=== PATIENT | male | born 1945 | race Caucasian/White ===

== ENCOUNTER 2018-11-06 13:15 | Inpatient (IN) | payer MEDICARE, OTHER ==
[2018-11-06] MEDS ORDERED: DILTIAZEM 25 MG INJ (14:34)
[2018-11-06 14:45] LABS: ADD MAN DIFF? NO
[2018-11-06] MEDS: ENOXAPARIN 80 MG/0.8 ML SYG SC (14:47)
[2018-11-06] MEDS: SOD CHLORIDE 0.9% 500 ML IV (14:48)
[2018-11-06] MEDS: DILTIAZEM 25 MG INJ IV (14:48)
[2018-11-06 14:51] LABS: WHITE BLOOD COUNT 10.6 10^3/ul (4.8-10.8)
[2018-11-06 14:51] LABS: BASOPHILS % 0.4 % (0.0-2.0); EOSINOPHILS % 0.3 % (0.0-7.0); HEMATOCRIT 42.9 % (42.0-52.0); HEMOGLOBIN 13.9 g/dl (14.0-18.0); LYMPHOCYTES # 0.7 10^3/ul (0.8-2.9); LYMPHOCYTES % 6.5 % (15.0-51.0); MEAN CORPUSCULAR HEMOGLOBIN 30.3 pg (29.0-33.0); MEAN CORPUSCULAR HGB CONC 32.4 g/dl (32.0-37.0); MEAN CORPUSCULAR VOLUME 93.7 fl (82.0-101.0); MEAN PLATELET VOLUME 11.7 fl (7.4-10.4); MONOCYTE # 1.1 10^3/ul (0.3-0.9); MONOCYTES % 10.1 % (0.0-11.0); NEUTROPHIL # 8.8 10^3/ul (1.6-7.5); NEUTROPHILS % 82.2 % (39.0-77.0); PLATELET COUNT 158 10^3/UL (140-415); RED BLOOD COUNT 4.58 10^6/ul (4.70-6.10); RED CELL DISTRIBUTION WIDTH 14.8 % (11.5-14.5)
[2018-11-06 15:09] LABS: ANION GAP 8 (5-13); BLOOD UREA NITROGEN 49 mg/dl (7-20); CARBON DIOXIDE 25 mmol/L (21-31); CHLORIDE 109 mmol/L (97-110); CREATININE 1.68 mg/dl (0.61-1.24); GLUCOSE 112 mg/dl (70-220); POTASSIUM 4.8 mmol/L (3.5-5.1); SODIUM 142 mmol/L (135-144)
[2018-11-06 15:10] LABS: ALANINE AMINOTRANSFERASE 37 IU/L (13-69); ALBUMIN 3.9 g/dl (3.3-4.9); ALKALINE PHOSPHATASE 69 IU/L (42-121); ASPARTATE AMINO TRANSFERASE 23 IU/L (15-46); BILIRUBIN,INDIRECT 1.2 mg/dl (0-1.1); BILIRUBIN,TOTAL 1.2 mg/dl (0.2-1.3); CALCIUM 9.8 mg/dl (8.4-10.2); TOTAL PROTEIN 6.5 g/dl (6.1-8.1)
[2018-11-06 15:20] LABS: B-TYPE NATRIURETIC PEPTIDE 13100 PG/ML (0-125); TROPONIN-I 0.026 ng/ml (0.000-0.120)
[2018-11-06 15:38] LABS: INR 1.27; PT RATIO 1.3
[2018-11-06 15:39] LABS: PARTIAL THROMBOPLASTIN TIME 31.9 Sec (23.0-35.0)
[2018-11-06] MEDS: DILTIAZEM-D5W 125MG/125ML DRIP 125 ML IV (15:40)
[2018-11-06] MEDS ORDERED: NACL 0.9% 3 ML SYG IV (17:30)
[2018-11-06] MEDS ORDERED: ONDANSETRON 4 MG INJ IV (17:30)
[2018-11-06] MEDS ORDERED: ONDANSETRON 4 MG TAB PO (17:30)
[2018-11-06] MEDS ORDERED: HYDROCODONE/APAP (5/325) TAB PO (17:30)
[2018-11-06] MEDS ORDERED: ACETAMINOPHEN 325 MG TAB PO ×2 (17:30)
[2018-11-06] MEDS ORDERED: DILTIAZEM-D5W 125MG/125ML DRIP 125 ML IV (18:00)
[2018-11-06 18:01] LABS: ADD UMIC YES; UR ASCORBIC ACID 20 mg/dL (NEGATIVE); UR BILIRUBIN (Dip) NEGATIVE (NEGATIVE); UR BLOOD (Dip) NEGATIVE (NEGATIVE); UR CLARITY CLEAR (CLEAR); UR COLOR AMBER (YELLOW); UR GLUCOSE (Dip) NEGATIVE (NEGATIVE); UR KETONES (Dip) TRACE mg/dL (NEGATIVE); UR LEUKOCYTE ESTERASE (Dip) NEGATIVE Leu/ul (NEGATIVE); UR MUCUS FEW /HPF (NONE SEEN); UR NITRITE (Dip) NEGATIVE (NEGATIVE); UR RBC 1 /HPF (0-5); UR SPECIFIC GRAVITY (Dip) 1.029 (1.003-1.030); UR TOTAL PROTEIN (Dip) 2+ mg/dl (NEGATIVE); UR UROBILINOGEN (Dip) 1+ mg/dL (NEGATIVE); UR WBC 1 /HPF (0-5)
[2018-11-06] MEDS: METHYLPREDNISOLONE 125 MG INJ IV (18:14)
[2018-11-06 18:17] LABS: CREATINE KINASE 78 IU/L (23-200)
[2018-11-06 18:30] LABS: CK INDEX 2.2; CK-MB 1.68 ng/ml (0.0-2.4); TROPONIN-I 0.027 ng/ml (0.000-0.120)
[2018-11-06] MEDS: METOPROLOL 25 MG TAB PO (18:41)
[2018-11-06] MEDS: NICARDipine HCL 30 MG CAPSULE PO (18:45)
[2018-11-06] MEDS ORDERED: METOPROLOL 25 MG TAB PO ×2 (21:00)
[2018-11-06] MEDS: FAMOTIDINE 20 MG TAB PO (21:51)
[2018-11-06] MEDS: MONTELUKAST 10 MG TAB PO (21:51)
[2018-11-06] MEDS: ATORVASTATIN 40 MG TAB PO (21:51)
[2018-11-06] MEDS: GABAPENTIN 400 MG CAP PO (21:51)
[2018-11-06] MEDS: TAMSULOSIN (SR) 0.4 MG CAP PO (21:52)
[2018-11-06] MEDS: HEPARIN 5,000 UNIT/1 ML VIAL SC (23:34)
[2018-11-06] MEDS: CYANOCOBALAMIN 1000 MCG INJ IM (23:46)
[2018-11-06] MEDS: TIOTROPIUM 18 MCG CAPSULE INHA DEV INH (23:54)
[2018-11-06] MEDS: FLUTICASONE/VILANTEROL 100-25 INH (23:54)
[2018-11-07 00:16] LABS: CREATINE KINASE 74 IU/L (23-200)
[2018-11-07 00:29] LABS: CK INDEX 2.1; CK-MB 1.59 ng/ml (0.0-2.4); TROPONIN-I 0.031 ng/ml (0.000-0.120)
[2018-11-07] MEDS: METOPROLOL 25 MG TAB PO ×5 (05:00→21:33)
[2018-11-07] MEDS ORDERED: LORAZEPAM 2 MG INJ (05:07)
[2018-11-07] MEDS: HALOPERIDOL 5 MG INJ IM (05:18)
[2018-11-07] MEDS: TIOTROPIUM 18 MCG CAPSULE INHA DEV INH (09:00)
[2018-11-07] MEDS: FAMOTIDINE 20 MG TAB PO ×2 (09:00→20:19)
[2018-11-07] MEDS: HEPARIN 5,000 UNIT/1 ML VIAL SC ×2 (09:00→20:42)
[2018-11-07] MEDS: LOSARTAN 50 MG TAB PO (09:00)
[2018-11-07] MEDS: FINASTERIDE 5 MG TAB PO (09:00)
[2018-11-07] MEDS: ASPIRIN 81 MG TAB PO (09:00)
[2018-11-07] MEDS: FLUTICASONE/VILANTEROL 100-25 INH (09:00)
[2018-11-07] MEDS: LORAZEPAM 2 MG INJ IV (11:46)
[2018-11-07] MEDS: ACETYLCYSTEINE 600 MG CAP PO ×2 (13:30→20:20)
[2018-11-07 13:43] LABS: ADD MAN DIFF? NO
[2018-11-07 13:46] LABS: ABNORMAL IP MESSAGE 1; BASOPHILS % 0.1 % (0.0-2.0); HEMATOCRIT 39.4 % (42.0-52.0); HEMOGLOBIN 12.8 g/dl (14.0-18.0); LYMPHOCYTES # 0.2 10^3/ul (0.8-2.9); LYMPHOCYTES % 2.2 % (15.0-51.0); MEAN CORPUSCULAR HEMOGLOBIN 30.4 pg (29.0-33.0); MEAN CORPUSCULAR HGB CONC 32.5 g/dl (32.0-37.0); MEAN CORPUSCULAR VOLUME 93.6 fl (82.0-101.0); MEAN PLATELET VOLUME 11.8 fl (7.4-10.4); MONOCYTE # 0.3 10^3/ul (0.3-0.9); NEUTROPHIL # 7.7 10^3/ul (1.6-7.5); NEUTROPHILS % 93.5 % (39.0-77.0); PLATELET COUNT 154 10^3/UL (140-415); POSITIVE DIFF @See below; RED BLOOD COUNT 4.21 10^6/ul (4.70-6.10); RED CELL DISTRIBUTION WIDTH 14.5 % (11.5-14.5)
[2018-11-07 13:46] LABS: WHITE BLOOD COUNT 8.2 10^3/ul (4.8-10.8)
[2018-11-07 14:01] LABS: HEMOGLOBIN A1C 5.6 % (0-5.9)
[2018-11-07 14:05] LABS: ALANINE AMINOTRANSFERASE 24 IU/L (13-69); ALBUMIN 3.6 g/dl (3.3-4.9); ALKALINE PHOSPHATASE 60 IU/L (42-121); ANION GAP 14 (5-13); ASPARTATE AMINO TRANSFERASE 18 IU/L (15-46); BILIRUBIN,INDIRECT 0.9 mg/dl (0-1.1); BILIRUBIN,TOTAL 0.9 mg/dl (0.2-1.3); BLOOD UREA NITROGEN 49 mg/dl (7-20); CALCIUM 8.9 mg/dl (8.4-10.2); CARBON DIOXIDE 22 mmol/L (21-31); CHLORIDE 106 mmol/L (97-110); CREATININE 1.23 mg/dl (0.61-1.24); GLUCOSE 117 mg/dl (70-220); POTASSIUM 4.1 mmol/L (3.5-5.1); SODIUM 142 mmol/L (135-144)
[2018-11-07 14:05] LABS: MAGNESIUM 2.1 mg/dl (1.7-2.5)
[2018-11-07 15:45] LABS: RAPID PLASMA REAGIN NONREACTIVE (NR)
[2018-11-07] MEDS: TAMSULOSIN (SR) 0.4 MG CAP PO (20:19)
[2018-11-07] MEDS: ATORVASTATIN 40 MG TAB PO (20:19)
[2018-11-07] MEDS: MONTELUKAST 10 MG TAB PO (20:20)
[2018-11-07] MEDS: GABAPENTIN 400 MG CAP PO (21:33)
[2018-11-07] MEDS: LORAZEPAM 0.5 MG TAB PO (21:33)
[2018-11-08] MEDS: METOPROLOL 25 MG TAB PO ×3 (05:39→20:42)
[2018-11-08] MEDS: ACETYLCYSTEINE 600 MG CAP PO ×2 (08:48→20:39)
[2018-11-08] MEDS: ASPIRIN 81 MG TAB PO (08:48)
[2018-11-08] MEDS: FINASTERIDE 5 MG TAB PO (08:48)
[2018-11-08] MEDS: FAMOTIDINE 20 MG TAB PO ×2 (08:48→20:39)
[2018-11-08] MEDS: LOSARTAN 50 MG TAB PO (08:48)
[2018-11-08] MEDS: TIOTROPIUM 18 MCG CAPSULE INHA DEV INH (08:49)
[2018-11-08] MEDS: FLUTICASONE/VILANTEROL 100-25 INH (08:49)
[2018-11-08 08:58] LABS: ALANINE AMINOTRANSFERASE 29 IU/L (13-69); ALBUMIN 3.4 g/dl (3.3-4.9); ALBUMIN/GLOBULIN RATIO 1.41; ALKALINE PHOSPHATASE 63 IU/L (42-121); ANION GAP 10 (5-13); ASPARTATE AMINO TRANSFERASE 18 IU/L (15-46); BILIRUBIN,INDIRECT 0.5 mg/dl (0-1.1); BILIRUBIN,TOTAL 0.5 mg/dl (0.2-1.3); BLOOD UREA NITROGEN 52 mg/dl (7-20); CALCIUM 9.1 mg/dl (8.4-10.2); CARBON DIOXIDE 26 mmol/L (21-31); CHLORIDE 107 mmol/L (97-110); CREATININE 1.47 mg/dl (0.61-1.24); GLUCOSE 96 mg/dl (70-220); POTASSIUM 4.7 mmol/L (3.5-5.1); SODIUM 143 mmol/L (135-144); TOTAL PROTEIN 5.8 g/dl (6.1-8.1)
[2018-11-08] MEDS: HEPARIN 5,000 UNIT/1 ML VIAL SC ×2 (08:58→20:51)
[2018-11-08] MEDS: LACTATED RINGER'S 500 ML IV (14:00)
[2018-11-08] MEDS: AZITHROMYCIN 500 MG TAB PO (14:37)
[2018-11-08] MEDS: LORAZEPAM 0.5 MG TAB PO ×2 (14:37→23:09)
[2018-11-08] MEDS: DONEPEZIL 10 MG TAB PO (14:37)
[2018-11-08] MEDS: MONTELUKAST 10 MG TAB PO (20:39)
[2018-11-08] MEDS: GABAPENTIN 400 MG CAP PO (20:39)
[2018-11-08] MEDS: TAMSULOSIN (SR) 0.4 MG CAP PO (20:39)
[2018-11-08] MEDS: ATORVASTATIN 40 MG TAB PO (20:39)
[2018-11-09] MEDS: LORAZEPAM 2 MG INJ IV (04:04)
[2018-11-09 06:49] LABS: ADD MAN DIFF? NO
[2018-11-09 06:55] LABS: BASOPHILS % 0.1 % (0.0-2.0); EOSINOPHILS # 0.1 10^3/ul (0.0-0.5); EOSINOPHILS % 0.9 % (0.0-7.0); HEMATOCRIT 38.3 % (42.0-52.0); HEMOGLOBIN 12.3 g/dl (14.0-18.0); LYMPHOCYTES # 0.7 10^3/ul (0.8-2.9); LYMPHOCYTES % 8.3 % (15.0-51.0); MEAN CORPUSCULAR HEMOGLOBIN 29.9 pg (29.0-33.0); MEAN CORPUSCULAR HGB CONC 32.1 g/dl (32.0-37.0); MEAN CORPUSCULAR VOLUME 93.2 fl (82.0-101.0); MONOCYTE # 0.7 10^3/ul (0.3-0.9); MONOCYTES % 8.8 % (0.0-11.0); NEUTROPHIL # 6.6 10^3/ul (1.6-7.5); NEUTROPHILS % 81.5 % (39.0-77.0); PLATELET COUNT 166 10^3/UL (140-415); RED BLOOD COUNT 4.11 10^6/ul (4.70-6.10); RED CELL DISTRIBUTION WIDTH 14.6 % (11.5-14.5)
[2018-11-09 07:25] LABS: ALANINE AMINOTRANSFERASE 30 IU/L (13-69); ALBUMIN 2.9 g/dl (3.3-4.9); ALBUMIN/GLOBULIN RATIO 1.31; ALKALINE PHOSPHATASE 58 IU/L (42-121); ANION GAP 9 (5-13); ASPARTATE AMINO TRANSFERASE 19 IU/L (15-46); BILIRUBIN,INDIRECT 0.4 mg/dl (0-1.1); BILIRUBIN,TOTAL 0.4 mg/dl (0.2-1.3); BLOOD UREA NITROGEN 58 mg/dl (7-20); CALCIUM 8.7 mg/dl (8.4-10.2); CARBON DIOXIDE 22 mmol/L (21-31); CHLORIDE 109 mmol/L (97-110); CREATININE 1.32 mg/dl (0.61-1.24); GLUCOSE 100 mg/dl (70-220); POTASSIUM 4.2 mmol/L (3.5-5.1); SODIUM 140 mmol/L (135-144); TOTAL PROTEIN 5.1 g/dl (6.1-8.1)
[2018-11-09] MEDS: LEVOFLOXACIN 500 MG TAB PO (08:11)
[2018-11-09] MEDS: ACETYLCYSTEINE 600 MG CAP PO ×2 (08:11→20:20)
[2018-11-09] MEDS: DONEPEZIL 10 MG TAB PO ×2 (08:11→20:22)
[2018-11-09] MEDS: FINASTERIDE 5 MG TAB PO (08:11)
[2018-11-09] MEDS: ASPIRIN 81 MG TAB PO (08:12)
[2018-11-09] MEDS: FAMOTIDINE 20 MG TAB PO ×2 (08:12→20:21)
[2018-11-09] MEDS: MEMANTINE 5 MG TAB PO (08:12)
[2018-11-09] MEDS: LOSARTAN 50 MG TAB PO (08:12)
[2018-11-09] MEDS: METOPROLOL 25 MG TAB PO ×2 (08:13→20:22)
[2018-11-09] MEDS: HEPARIN 5,000 UNIT/1 ML VIAL SC ×2 (08:21→20:38)
[2018-11-09] MEDS: TIOTROPIUM 18 MCG CAPSULE INHA DEV INH (08:22)
[2018-11-09] MEDS: FLUTICASONE/VILANTEROL 100-25 INH (08:22)
[2018-11-09] MEDS: LACTATED RINGER'S 500 ML IV ×2 (10:15→14:14)
[2018-11-09] MEDS: DIGOXIN 500 MCG INJ IV (14:11)
[2018-11-09] MEDS: LAMOTRIGINE 25 MG TAB PO ×2 (14:38→23:46)
[2018-11-09 17:51] LABS: NIL 0.01 IU/mL; QUANTIFERON(R)-TB GOLD NEGATIVE (NEGATIVE)
[2018-11-09] MEDS: RIVAROXABAN 20 MG TABLET PO (18:09)
[2018-11-09] MEDS: TAMSULOSIN (SR) 0.4 MG CAP PO (20:20)
[2018-11-09] MEDS: ATORVASTATIN 40 MG TAB PO (20:20)
[2018-11-09] MEDS: MONTELUKAST 10 MG TAB PO (20:21)
[2018-11-09] MEDS: GABAPENTIN 400 MG CAP PO (20:21)
[2018-11-09] MEDS ORDERED: QUETIAPINE 25 MG TAB PO (21:00)
[2018-11-10] MEDS: QUETIAPINE 25 MG TAB PO ×2 (04:15→19:06)
[2018-11-10] MEDS: LEVOFLOXACIN 500 MG TAB PO (06:08)
[2018-11-10 06:11] LABS: ADD MAN DIFF? NO
[2018-11-10 06:14] LABS: WHITE BLOOD COUNT 7.4 10^3/ul (4.8-10.8)
[2018-11-10 06:14] LABS: BASOPHILS % 0.3 % (0.0-2.0); EOSINOPHILS # 0.1 10^3/ul (0.0-0.5); EOSINOPHILS % 1.9 % (0.0-7.0); HEMATOCRIT 38.8 % (42.0-52.0); HEMOGLOBIN 12.3 g/dl (14.0-18.0); LYMPHOCYTES # 0.9 10^3/ul (0.8-2.9); LYMPHOCYTES % 11.5 % (15.0-51.0); MEAN CORPUSCULAR HEMOGLOBIN 29.6 pg (29.0-33.0); MEAN CORPUSCULAR HGB CONC 31.7 g/dl (32.0-37.0); MEAN CORPUSCULAR VOLUME 93.5 fl (82.0-101.0); MONOCYTE # 0.7 10^3/ul (0.3-0.9); NEUTROPHIL # 5.6 10^3/ul (1.6-7.5); NEUTROPHILS % 75.9 % (39.0-77.0); PLATELET COUNT 169 10^3/UL (140-415); RED BLOOD COUNT 4.15 10^6/ul (4.70-6.10); RED CELL DISTRIBUTION WIDTH 14.4 % (11.5-14.5)
[2018-11-10 07:00] LABS: ALANINE AMINOTRANSFERASE 35 IU/L (13-69); ALBUMIN/GLOBULIN RATIO 1.36; ALKALINE PHOSPHATASE 61 IU/L (42-121); ANION GAP 6 (5-13); ASPARTATE AMINO TRANSFERASE 21 IU/L (15-46); BILIRUBIN,INDIRECT 0.8 mg/dl (0-1.1); BILIRUBIN,TOTAL 0.8 mg/dl (0.2-1.3); BLOOD UREA NITROGEN 48 mg/dl (7-20); CALCIUM 8.8 mg/dl (8.4-10.2); CARBON DIOXIDE 26 mmol/L (21-31); CHLORIDE 108 mmol/L (97-110); CREATININE 1.25 mg/dl (0.61-1.24); GLUCOSE 99 mg/dl (70-220); SODIUM 140 mmol/L (135-144); TOTAL PROTEIN 5.2 g/dl (6.1-8.1)
[2018-11-10 07:26] LABS: ERYTHROCYTE SEDIMENTATION RATE 2 mm/Hr (0-20)
[2018-11-10] MEDS: ASPIRIN 81 MG TAB PO ×2 (08:30→09:00)
[2018-11-10] MEDS: FAMOTIDINE 20 MG TAB PO ×2 (09:00→20:12)
[2018-11-10] MEDS: FINASTERIDE 5 MG TAB PO (09:00)
[2018-11-10] MEDS: FLUTICASONE/VILANTEROL 100-25 INH (09:00)
[2018-11-10] MEDS: LAMOTRIGINE 25 MG TAB PO ×2 (09:32→22:08)
[2018-11-10] MEDS: LOSARTAN 50 MG TAB PO (09:33)
[2018-11-10] MEDS: METOPROLOL 25 MG TAB PO (09:34)
[2018-11-10] MEDS: HEPARIN 5,000 UNIT/1 ML VIAL SC ×2 (09:51→21:30)
[2018-11-10] MEDS: ACETYLCYSTEINE 600 MG CAP PO ×2 (10:51→20:12)
[2018-11-10] MEDS: DIGOXIN 0.25 MG TAB PO (12:52)
[2018-11-10] MEDS: RIVAROXABAN 20 MG TABLET PO (17:10)
[2018-11-10] MEDS: TAMSULOSIN (SR) 0.4 MG CAP PO (20:11)
[2018-11-10] MEDS: GABAPENTIN 400 MG CAP PO (20:11)
[2018-11-10] MEDS: DONEPEZIL 10 MG TAB PO (20:11)
[2018-11-10] MEDS: MONTELUKAST 10 MG TAB PO (20:12)
[2018-11-10] MEDS: ATORVASTATIN 40 MG TAB PO (20:12)
[2018-11-10] MEDS: ATENOLOL 50 MG TAB PO (20:12)
[2018-11-11 06:08] LABS: ADD MAN DIFF? NO
[2018-11-11] MEDS: LEVOFLOXACIN 500 MG TAB PO (06:13)
[2018-11-11 06:18] LABS: WHITE BLOOD COUNT 9.8 10^3/ul (4.8-10.8)
[2018-11-11 06:18] LABS: BASOPHILS % 0.3 % (0.0-2.0); EOSINOPHILS # 0.2 10^3/ul (0.0-0.5); EOSINOPHILS % 2.2 % (0.0-7.0); HEMATOCRIT 44.9 % (42.0-52.0); HEMOGLOBIN 14.4 g/dl (14.0-18.0); LYMPHOCYTES # 0.9 10^3/ul (0.8-2.9); LYMPHOCYTES % 9.5 % (15.0-51.0); MEAN CORPUSCULAR HEMOGLOBIN 29.9 pg (29.0-33.0); MEAN CORPUSCULAR HGB CONC 32.1 g/dl (32.0-37.0); MEAN CORPUSCULAR VOLUME 93.3 fl (82.0-101.0); MEAN PLATELET VOLUME 11.3 fl (7.4-10.4); MONOCYTE # 0.8 10^3/ul (0.3-0.9); NEUTROPHIL # 7.8 10^3/ul (1.6-7.5); NEUTROPHILS % 79.6 % (39.0-77.0); PLATELET COUNT 205 10^3/UL (140-415); RED BLOOD COUNT 4.81 10^6/ul (4.70-6.10); RED CELL DISTRIBUTION WIDTH 14.4 % (11.5-14.5)
[2018-11-11 06:41] LABS: ALANINE AMINOTRANSFERASE 27 IU/L (13-69); ALBUMIN 3.6 g/dl (3.3-4.9); ALBUMIN/GLOBULIN RATIO 1.44; ALKALINE PHOSPHATASE 73 IU/L (42-121); ANION GAP 8 (5-13); ASPARTATE AMINO TRANSFERASE 26 IU/L (15-46); BILIRUBIN,INDIRECT 1.2 mg/dl (0-1.1); BILIRUBIN,TOTAL 1.2 mg/dl (0.2-1.3); BLOOD UREA NITROGEN 40 mg/dl (7-20); CALCIUM 9.3 mg/dl (8.4-10.2); CARBON DIOXIDE 25 mmol/L (21-31); CHLORIDE 109 mmol/L (97-110); CREATININE 1.19 mg/dl (0.61-1.24); GLUCOSE 103 mg/dl (70-220); MAGNESIUM 2.2 mg/dl (1.7-2.5); POTASSIUM 4.5 mmol/L (3.5-5.1); SODIUM 142 mmol/L (135-144); TOTAL PROTEIN 6.1 g/dl (6.1-8.1)
[2018-11-11 07:32] LABS: DIGOXIN 0.7 ng/ml (1.0-2.0)
[2018-11-11] MEDS: FLUTICASONE/VILANTEROL 100-25 INH (08:14)
[2018-11-11] MEDS: FINASTERIDE 5 MG TAB PO (08:15)
[2018-11-11] MEDS: ACETYLCYSTEINE 600 MG CAP PO (08:15)
[2018-11-11] MEDS: ASPIRIN 81 MG TAB PO (08:15)
[2018-11-11] MEDS: LOSARTAN 50 MG TAB PO (08:15)
[2018-11-11] MEDS: ATENOLOL 50 MG TAB PO ×2 (08:15→21:30)
[2018-11-11] MEDS: LAMOTRIGINE 25 MG TAB PO ×2 (08:15→21:30)
[2018-11-11] MEDS: FAMOTIDINE 20 MG TAB PO ×2 (08:21→21:30)
[2018-11-11] MEDS: HEPARIN 5,000 UNIT/1 ML VIAL SC ×2 (08:25→23:38)
[2018-11-11] MEDS: LORAZEPAM 2 MG INJ IV (10:32)
[2018-11-11] MEDS: DILTIAZEM 25 MG INJ IV (12:17)
[2018-11-11] MEDS: DIGOXIN 0.25 MG TAB PO (12:18)
[2018-11-11] MEDS: LACTATED RINGER'S 500 ML IV (12:19)
[2018-11-11] MEDS: DIGOXIN 500 MCG INJ IV (12:32)
[2018-11-11] MEDS: RIVAROXABAN 20 MG TABLET PO (17:30)
[2018-11-11] MEDS: QUETIAPINE 25 MG TAB PO (18:03)
[2018-11-11] MEDS: ALPRAZOLAM 0.25 MG TAB PO (18:03)
[2018-11-11] MEDS: ALBUTEROL/IPRATROPIUM (NEB) 3 ML AMP HHN (20:03)
[2018-11-11] MEDS: TAMSULOSIN (SR) 0.4 MG CAP PO (21:30)
[2018-11-11] MEDS: GABAPENTIN 300 MG CAP PO (21:30)
[2018-11-11] MEDS: DONEPEZIL 10 MG TAB PO (21:30)
[2018-11-11] MEDS: ATORVASTATIN 40 MG TAB PO (21:30)
[2018-11-11] MEDS: MONTELUKAST 10 MG TAB PO (21:30)
[2018-11-12] MEDS: ALPRAZOLAM 0.25 MG TAB PO ×2 (01:16→18:06)
[2018-11-12] MEDS: LEVOFLOXACIN 500 MG TAB PO (05:30)
[2018-11-12 06:39] LABS: DIGOXIN 1.1 ng/ml (1.0-2.0)
[2018-11-12 06:39] LABS: ANION GAP 6 (5-13); BLOOD UREA NITROGEN 33 mg/dl (7-20); CALCIUM 9.3 mg/dl (8.4-10.2); CARBON DIOXIDE 27 mmol/L (21-31); CHLORIDE 110 mmol/L (97-110); CREATININE 1.13 mg/dl (0.61-1.24); GLUCOSE 89 mg/dl (70-220); POTASSIUM 4.3 mmol/L (3.5-5.1); SODIUM 143 mmol/L (135-144)
[2018-11-12] MEDS: FLUTICASONE/VILANTEROL 100-25 INH (09:00)
[2018-11-12] MEDS: LAMOTRIGINE 25 MG TAB PO (14:10)
[2018-11-12] MEDS: FINASTERIDE 5 MG TAB PO (14:10)
[2018-11-12] MEDS: DIGOXIN 0.25 MG TAB PO (14:10)
[2018-11-12] MEDS: FAMOTIDINE 20 MG TAB PO ×2 (14:10→21:29)
[2018-11-12] MEDS: ASPIRIN 81 MG TAB PO (14:11)
[2018-11-12] MEDS: HEPARIN 5,000 UNIT/1 ML VIAL SC ×2 (14:22→21:35)
[2018-11-12] MEDS: MEMANTINE 5 MG TAB PO (14:30)
[2018-11-12] MEDS: LOSARTAN 50 MG TAB PO (14:30)
[2018-11-12] MEDS: QUETIAPINE 25 MG TAB PO (18:06)
[2018-11-12] MEDS: RIVAROXABAN 20 MG TABLET PO (18:06)
[2018-11-12] MEDS ORDERED: DILTIAZEM (CD) 120 MG CAP PO (21:00)
[2018-11-12] MEDS: TAMSULOSIN (SR) 0.4 MG CAP PO (21:29)
[2018-11-12] MEDS: MONTELUKAST 10 MG TAB PO (21:29)
[2018-11-12] MEDS: ATORVASTATIN 40 MG TAB PO (21:29)
[2018-11-12] MEDS: DILTIAZEM (CD) 180 MG CAP PO (21:30)
[2018-11-12] MEDS: CLONIDINE 0.2 MG/24 HR PATCH TRANSDERM (23:05)
[2018-11-13] MEDS: LEVOFLOXACIN 500 MG TAB PO (06:14)
[2018-11-13] MEDS: ASPIRIN 81 MG TAB PO (09:26)
[2018-11-13] MEDS: FINASTERIDE 5 MG TAB PO (09:26)
[2018-11-13] MEDS: LOSARTAN 50 MG TAB PO (09:27)
[2018-11-13] MEDS: FAMOTIDINE 20 MG TAB PO ×2 (09:27→21:46)
[2018-11-13] MEDS: DILTIAZEM (CD) 180 MG CAP PO (09:27)
[2018-11-13] MEDS: HEPARIN 5,000 UNIT/1 ML VIAL SC ×2 (09:33→21:59)
[2018-11-13] MEDS: FLUTICASONE/VILANTEROL 100-25 INH (09:43)
[2018-11-13] MEDS: DIGOXIN 0.25 MG TAB PO (12:29)
[2018-11-13] MEDS: QUETIAPINE 25 MG TAB PO (18:17)
[2018-11-13] MEDS: RIVAROXABAN 20 MG TABLET PO (18:17)
[2018-11-13] MEDS: TAMSULOSIN (SR) 0.4 MG CAP PO (21:47)
[2018-11-13] MEDS: ATORVASTATIN 40 MG TAB PO (21:47)
[2018-11-13] MEDS: DILTIAZEM (CD) 240 MG CAP PO (21:47)
[2018-11-13] MEDS: MONTELUKAST 10 MG TAB PO (21:48)
[2018-11-14] MEDS: LEVOFLOXACIN 500 MG TAB PO (05:35)
[2018-11-14] MEDS: QUETIAPINE 25 MG TAB PO ×3 (05:35→20:29)
[2018-11-14] MEDS: ASPIRIN 81 MG TAB PO (08:39)
[2018-11-14] MEDS: LOSARTAN 50 MG TAB PO (08:40)
[2018-11-14] MEDS: FINASTERIDE 5 MG TAB PO (08:40)
[2018-11-14] MEDS: FAMOTIDINE 20 MG TAB PO ×2 (08:40→20:30)
[2018-11-14] MEDS: FLUTICASONE/VILANTEROL 100-25 INH (08:40)
[2018-11-14] MEDS: DILTIAZEM (CD) 240 MG CAP PO (08:41)
[2018-11-14] MEDS: HEPARIN 5,000 UNIT/1 ML VIAL SC ×2 (08:47→21:13)
[2018-11-14] MEDS ORDERED: DILTIAZEM 60 MG TAB PO (13:30)
[2018-11-14] MEDS: DILTIAZEM (CD) 120 MG CAP PO ×2 (14:44→20:30)
[2018-11-14] MEDS: RIVAROXABAN 20 MG TABLET PO (17:07)
[2018-11-14] MEDS: ATORVASTATIN 40 MG TAB PO (20:29)
[2018-11-14] MEDS: MONTELUKAST 10 MG TAB PO (20:30)
[2018-11-14] MEDS: TAMSULOSIN (SR) 0.4 MG CAP PO (20:30)
[2018-11-14] MEDS ORDERED: QUETIAPINE 25 MG TAB PO (21:00)
[2018-11-15] MEDS: LEVOFLOXACIN 500 MG TAB PO (05:04)
[2018-11-15] MEDS: FLUTICASONE/VILANTEROL 100-25 INH (09:08)
[2018-11-15] MEDS: FINASTERIDE 5 MG TAB PO (09:08)
[2018-11-15] MEDS: ASPIRIN 81 MG TAB PO (09:09)
[2018-11-15] MEDS: LOSARTAN 50 MG TAB PO (09:09)
[2018-11-15] MEDS: DILTIAZEM (CD) 120 MG CAP PO ×2 (09:09→20:10)
[2018-11-15] MEDS: FAMOTIDINE 20 MG TAB PO ×2 (09:09→20:08)
[2018-11-15] MEDS: QUETIAPINE 25 MG TAB PO ×3 (09:11→20:08)
[2018-11-15] MEDS: HEPARIN 5,000 UNIT/1 ML VIAL SC ×2 (09:18→21:01)
[2018-11-15] MEDS: RIVAROXABAN 20 MG TABLET PO (17:21)
[2018-11-15] MEDS: MONTELUKAST 10 MG TAB PO (20:08)
[2018-11-15] MEDS: ATORVASTATIN 40 MG TAB PO (20:08)
[2018-11-15] MEDS: TAMSULOSIN (SR) 0.4 MG CAP PO (20:08)
[2018-11-16 06:09] LABS: ADD MAN DIFF? NO
[2018-11-16 06:17] LABS: WHITE BLOOD COUNT 9.7 10^3/ul (4.8-10.8)
[2018-11-16 06:17] LABS: ABNORMAL IP MESSAGE 1; BASOPHILS % 0.3 % (0.0-2.0); EOSINOPHILS # 0.1 10^3/ul (0.0-0.5); EOSINOPHILS % 0.7 % (0.0-7.0); HEMATOCRIT 41.7 % (42.0-52.0); LYMPHOCYTES # 0.6 10^3/ul (0.8-2.9); LYMPHOCYTES % 6.1 % (15.0-51.0); MEAN CORPUSCULAR HGB CONC 33.6 g/dl (32.0-37.0); MEAN CORPUSCULAR VOLUME 89.5 fl (82.0-101.0); MEAN PLATELET VOLUME 10.7 fl (7.4-10.4); MONOCYTE # 0.9 10^3/ul (0.3-0.9); MONOCYTES % 9.4 % (0.0-11.0); NEUTROPHIL # 8.1 10^3/ul (1.6-7.5); PLATELET COUNT 207 10^3/UL (140-415); POSITIVE DIFF @See below; RED BLOOD COUNT 4.66 10^6/ul (4.70-6.10); RED CELL DISTRIBUTION WIDTH 14.1 % (11.5-14.5)
[2018-11-16 06:40] LABS: ALANINE AMINOTRANSFERASE 27 IU/L (13-69); ALBUMIN 3.2 g/dl (3.3-4.9); ALBUMIN/GLOBULIN RATIO 1.33; ALKALINE PHOSPHATASE 70 IU/L (42-121); ANION GAP 8 (5-13); ASPARTATE AMINO TRANSFERASE 34 IU/L (15-46); BILIRUBIN,INDIRECT 1.6 mg/dl (0-1.1); BILIRUBIN,TOTAL 1.6 mg/dl (0.2-1.3); BLOOD UREA NITROGEN 17 mg/dl (7-20); CALCIUM 8.8 mg/dl (8.4-10.2); CARBON DIOXIDE 29 mmol/L (21-31); CHLORIDE 103 mmol/L (97-110); CREATININE 0.89 mg/dl (0.61-1.24); GLUCOSE 94 mg/dl (70-220); POTASSIUM 3.7 mmol/L (3.5-5.1); SODIUM 140 mmol/L (135-144); TOTAL PROTEIN 5.6 g/dl (6.1-8.1)
[2018-11-16] MEDS: FLUTICASONE/VILANTEROL 100-25 INH (09:04)
[2018-11-16] MEDS: FINASTERIDE 5 MG TAB PO (09:05)
[2018-11-16] MEDS: DOCUSATE SODIUM 100 MG CAP PO (09:05)
[2018-11-16] MEDS: FAMOTIDINE 20 MG TAB PO ×2 (09:05→21:56)
[2018-11-16] MEDS: DILTIAZEM (CD) 120 MG CAP PO ×2 (09:05→21:57)
[2018-11-16] MEDS: ASPIRIN 81 MG TAB PO (09:05)
[2018-11-16] MEDS: LOSARTAN 50 MG TAB PO ×2 (09:06→21:57)
[2018-11-16] MEDS: HEPARIN 5,000 UNIT/1 ML VIAL SC ×2 (09:21→22:06)
[2018-11-16] MEDS: QUETIAPINE 25 MG TAB PO ×2 (15:00→21:57)
[2018-11-16] MEDS ORDERED: CEPASTAT LOZENGE MT ×2 (16:00)
[2018-11-16] MEDS: RIVAROXABAN 20 MG TABLET PO (17:29)
[2018-11-16] MEDS: MONTELUKAST 10 MG TAB PO (21:56)
[2018-11-16] MEDS: ATORVASTATIN 40 MG TAB PO (21:56)
[2018-11-16] MEDS: TAMSULOSIN (SR) 0.4 MG CAP PO (21:57)
[2018-11-17] MEDS: QUETIAPINE 25 MG TAB PO ×2 (04:03→20:52)
[2018-11-17] MEDS: FLUTICASONE/VILANTEROL 100-25 INH (09:13)
[2018-11-17] MEDS: ASPIRIN 81 MG TAB PO (09:14)
[2018-11-17] MEDS: FINASTERIDE 5 MG TAB PO (09:14)
[2018-11-17] MEDS: FAMOTIDINE 20 MG TAB PO ×2 (09:14→20:52)
[2018-11-17] MEDS: HEPARIN 5,000 UNIT/1 ML VIAL SC ×2 (09:20→21:04)
[2018-11-17] MEDS: DILTIAZEM (CD) 120 MG CAP PO ×2 (16:34→20:52)
[2018-11-17] MEDS: LOSARTAN 50 MG TAB PO ×2 (16:34→20:51)
[2018-11-17] MEDS: RIVAROXABAN 20 MG TABLET PO (17:29)
[2018-11-17] MEDS: TAMSULOSIN (SR) 0.4 MG CAP PO (20:51)
[2018-11-17] MEDS: ATORVASTATIN 40 MG TAB PO (20:51)
[2018-11-17] MEDS: MONTELUKAST 10 MG TAB PO (20:51)
[2018-11-18] MEDS: DOCUSATE SODIUM 100 MG CAP PO ×2 (06:00→20:29)
[2018-11-18 06:24] LABS: ADD MAN DIFF? NO
[2018-11-18 06:37] LABS: BASOPHIL # 0.1 10^3/ul (0.0-0.1); BASOPHILS % 0.8 % (0.0-2.0); EOSINOPHILS # 0.2 10^3/ul (0.0-0.5); EOSINOPHILS % 2.5 % (0.0-7.0); HEMATOCRIT 40.9 % (42.0-52.0); HEMOGLOBIN 13.4 g/dl (14.0-18.0); LYMPHOCYTES # 1.1 10^3/ul (0.8-2.9); LYMPHOCYTES % 14.3 % (15.0-51.0); MEAN CORPUSCULAR HEMOGLOBIN 29.6 pg (29.0-33.0); MEAN CORPUSCULAR HGB CONC 32.8 g/dl (32.0-37.0); MEAN CORPUSCULAR VOLUME 90.3 fl (82.0-101.0); MEAN PLATELET VOLUME 10.8 fl (7.4-10.4); MONOCYTE # 0.8 10^3/ul (0.3-0.9); MONOCYTES % 9.9 % (0.0-11.0); NEUTROPHIL # 5.8 10^3/ul (1.6-7.5); PLATELET COUNT 220 10^3/UL (140-415); RED BLOOD COUNT 4.53 10^6/ul (4.70-6.10); RED CELL DISTRIBUTION WIDTH 14.6 % (11.5-14.5)
[2018-11-18 06:56] LABS: ANION GAP 6 (5-13); BLOOD UREA NITROGEN 21 mg/dl (7-20); CALCIUM 8.5 mg/dl (8.4-10.2); CARBON DIOXIDE 28 mmol/L (21-31); CHLORIDE 106 mmol/L (97-110); CREATININE 1.29 mg/dl (0.61-1.24); GLUCOSE 98 mg/dl (70-220); POTASSIUM 3.2 mmol/L (3.5-5.1); SODIUM 140 mmol/L (135-144)
[2018-11-18] MEDS: FAMOTIDINE 20 MG TAB PO ×2 (09:21→20:29)
[2018-11-18] MEDS: ASPIRIN 81 MG TAB PO (09:21)
[2018-11-18] MEDS: FINASTERIDE 5 MG TAB PO (09:21)
[2018-11-18] MEDS: LOSARTAN 50 MG TAB PO ×2 (09:21→20:29)
[2018-11-18] MEDS: FLUTICASONE/VILANTEROL 100-25 INH (09:22)
[2018-11-18] MEDS: DILTIAZEM (CD) 120 MG CAP PO (09:22)
[2018-11-18] MEDS: HEPARIN 5,000 UNIT/1 ML VIAL SC ×2 (09:29→20:37)
[2018-11-18] MEDS: POTASSIUM CHLORIDE (SR) 20 MEQ TAB PO (12:35)
[2018-11-18] MEDS: THIAMINE 200 MG INJ IM (17:04)
[2018-11-18] MEDS: RIVAROXABAN 20 MG TABLET PO (17:04)
[2018-11-18] MEDS: QUETIAPINE 25 MG TAB PO ×2 (19:39→20:29)
[2018-11-18] MEDS: ATORVASTATIN 40 MG TAB PO (20:29)
[2018-11-18] MEDS: MONTELUKAST 10 MG TAB PO (20:29)
[2018-11-18] MEDS: TAMSULOSIN (SR) 0.4 MG CAP PO (20:29)
[2018-11-19 06:16] LABS: ANION GAP 4 (5-13); BLOOD UREA NITROGEN 26 mg/dl (7-20); CALCIUM 8.7 mg/dl (8.4-10.2); CARBON DIOXIDE 28 mmol/L (21-31); CHLORIDE 108 mmol/L (97-110); CREATININE 1.04 mg/dl (0.61-1.24); GLUCOSE 98 mg/dl (70-220); POTASSIUM 3.7 mmol/L (3.5-5.1); SODIUM 140 mmol/L (135-144)
[2018-11-19] MEDS: FINASTERIDE 5 MG TAB PO (09:16)
[2018-11-19] MEDS: DILTIAZEM (CD) 180 MG CAP PO (09:16)
[2018-11-19] MEDS: FAMOTIDINE 20 MG TAB PO (09:17)
[2018-11-19] MEDS: LOSARTAN 50 MG TAB PO (09:17)
[2018-11-19] MEDS: ASPIRIN 81 MG TAB PO (09:18)
[2018-11-19] MEDS: FLUTICASONE/VILANTEROL 100-25 INH (09:18)
[2018-11-19] MEDS: THIAMINE 100 MG TAB PO (09:18)
[2018-11-19] MEDS: HEPARIN 5,000 UNIT/1 ML VIAL SC (09:33)
[2018-11-19] MEDS: AMLODIPINE 5 MG TAB PO (12:57)
[2018-11-19] MEDS: POTASSIUM CHLORIDE (SR) 20 MEQ TAB PO (14:25)
== END 2018-11-19 17:13 | DRG 193 ==
LOC: TEL 17:03 → 6WM 11-09 09:06 → TEL 23:58 → E/R 13:15 → TEL 11-07 19:05
DX: J18.1 Lobar pneumonia, unspecified organism (principal); G92 Toxic encephalopathy; N17.9 Acute kidney failure, unspecified; I48.0 Paroxysmal atrial fibrillation; F09 Unspecified mental disorder due to known physiological condition; F03.90 Unspecified dementia, unspecified severity, without behavioral disturbance, psychotic disturbance, mood disturbance, and anxiety; R41.0 Disorientation, unspecified; E78.5 Hyperlipidemia, unspecified; E53.8 Deficiency of other specified B group vitamins; I25.10 Atherosclerotic heart disease of native coronary artery without angina pectoris; I12.9 Hypertensive chronic kidney disease with stage 1 through stage 4 chronic kidney disease, or unspecified chronic kidney disease; J45.40 Moderate persistent asthma, uncomplicated; K21.9 Gastro-esophageal reflux disease without esophagitis; N40.0 Benign prostatic hyperplasia without lower urinary tract symptoms; N18.9 Chronic kidney disease, unspecified; R60.0 Localized edema; Z95.5 Presence of coronary angioplasty implant and graft; Z86.79 Personal history of other diseases of the circulatory system
CPT/HCPCS: 36415; 70450; 70553; 71045; 71250; 80048; 80053; 80162; 81001; 82550; 82553; 82607; 83036; 83735; 83880; 84443; 84484; 85025; 85610; 85651; 85730; 86480; 86592; 87040-91; 93005; 93306; 94664; 95819; 96361; 96365; 96372; 96375; 97110; 97116; 97164; 97530; 99285-25

== ENCOUNTER 2018-11-19 17:15 | Inpatient (IN) | payer MEDICARE ==
[2018-11-19] MEDS ORDERED: PENDING SANTYL ORDER FOR WOUND CARE XX (18:30)
[2018-11-19] MEDS ORDERED: MAGNESIUM HYDROXIDE 30ML CUP PO (18:30)
[2018-11-19] MEDS ORDERED: LACTULOSE 30ML CUP PO (18:30)
[2018-11-19] MEDS ORDERED: BISACODYL 10 MG SUPP PR (18:30)
[2018-11-19] MEDS ORDERED: ACETAMINOPHEN 325 MG TAB PO (20:30)
[2018-11-19] MEDS ORDERED: ALBUTEROL/IPRATROPIUM (NEB) 3 ML AMP HHN (20:30)
[2018-11-19] MEDS: SENNA TAB PO ×2 (21:00→23:48)
[2018-11-19] MEDS ORDERED: CEPASTAT LOZENGE MT (21:00)
[2018-11-19] MEDS: DOCUSATE SODIUM 100 MG CAP PO ×2 (21:00→23:48)
[2018-11-19] MEDS: LOSARTAN 50 MG TAB PO (21:19)
[2018-11-19] MEDS: HEPARIN 5,000 UNIT/1 ML VIAL SC (21:20)
[2018-11-19] MEDS: TAMSULOSIN (SR) 0.4 MG CAP PO (21:21)
[2018-11-19] MEDS: QUETIAPINE 25 MG TAB PO (21:21)
[2018-11-19] MEDS: ATORVASTATIN 40 MG TAB PO (21:21)
[2018-11-19] MEDS: MONTELUKAST 10 MG TAB PO (21:21)
[2018-11-19] MEDS: FAMOTIDINE 20 MG TAB PO (21:21)
[2018-11-19] MEDS: RIVAROXABAN 20 MG TABLET PO (21:26)
[2018-11-20 04:05] LABS: ADD UMIC YES; UR ASCORBIC ACID NEGATIVE (NEGATIVE); UR BILIRUBIN (Dip) NEGATIVE (NEGATIVE); UR BLOOD (Dip) 2+ mg/dL (NEGATIVE); UR CLARITY CLEAR (CLEAR); UR COLOR YELLOW (YELLOW); UR GLUCOSE (Dip) NEGATIVE (NEGATIVE); UR KETONES (Dip) NEGATIVE (NEGATIVE); UR LEUKOCYTE ESTERASE (Dip) NEGATIVE Leu/ul (NEGATIVE); UR NITRITE (Dip) NEGATIVE (NEGATIVE); UR RBC 87 /HPF (0-5); UR SPECIFIC GRAVITY (Dip) 1.018 (1.003-1.030); UR TOTAL PROTEIN (Dip) NEGATIVE (NEGATIVE); UR UROBILINOGEN (Dip) 2+ mg/dL (NEGATIVE); UR WBC 3 /HPF (0-5)
[2018-11-20 07:05] LABS: ADD MAN DIFF? NO
[2018-11-20 07:09] LABS: WHITE BLOOD COUNT 6.3 10^3/ul (4.8-10.8)
[2018-11-20 07:09] LABS: BASOPHILS % 0.5 % (0.0-2.0); EOSINOPHILS # 0.2 10^3/ul (0.0-0.5); EOSINOPHILS % 2.7 % (0.0-7.0); HEMATOCRIT 40.8 % (42.0-52.0); HEMOGLOBIN 13.4 g/dl (14.0-18.0); LYMPHOCYTES # 1.3 10^3/ul (0.8-2.9); MEAN CORPUSCULAR HGB CONC 32.8 g/dl (32.0-37.0); MEAN CORPUSCULAR VOLUME 91.5 fl (82.0-101.0); MEAN PLATELET VOLUME 9.8 fl (7.4-10.4); MONOCYTE # 0.6 10^3/ul (0.3-0.9); MONOCYTES % 9.5 % (0.0-11.0); NEUTROPHIL # 4.3 10^3/ul (1.6-7.5); PLATELET COUNT 206 10^3/UL (140-415); RED BLOOD COUNT 4.46 10^6/ul (4.70-6.10); RED CELL DISTRIBUTION WIDTH 14.6 % (11.5-14.5)
[2018-11-20 07:29] LABS: ALANINE AMINOTRANSFERASE 25 IU/L (13-69); ALBUMIN 3.2 g/dl (3.3-4.9); ALBUMIN/GLOBULIN RATIO 1.28; ALKALINE PHOSPHATASE 70 IU/L (42-121); ANION GAP 6 (5-13); ASPARTATE AMINO TRANSFERASE 33 IU/L (15-46); BILIRUBIN,INDIRECT 1.1 mg/dl (0-1.1); BILIRUBIN,TOTAL 1.1 mg/dl (0.2-1.3); BLOOD UREA NITROGEN 21 mg/dl (7-20); CALCIUM 8.8 mg/dl (8.4-10.2); CARBON DIOXIDE 28 mmol/L (21-31); CHLORIDE 107 mmol/L (97-110); CREATININE 0.95 mg/dl (0.61-1.24); GLUCOSE 96 mg/dl (70-220); POTASSIUM 3.9 mmol/L (3.5-5.1); SODIUM 141 mmol/L (135-144); TOTAL PROTEIN 5.7 g/dl (6.1-8.1)
[2018-11-20] MEDS: ASPIRIN 81 MG TAB PO (09:46)
[2018-11-20] MEDS: FINASTERIDE 5 MG TAB PO (09:46)
[2018-11-20] MEDS: DOCUSATE SODIUM 100 MG CAP PO ×2 (09:46→20:04)
[2018-11-20] MEDS: FLUTICASONE/VILANTEROL 100-25 INH (09:46)
[2018-11-20] MEDS: LOSARTAN 50 MG TAB PO ×2 (09:46→20:04)
[2018-11-20] MEDS: THIAMINE 100 MG TAB PO (09:46)
[2018-11-20] MEDS: DILTIAZEM (CD) 180 MG CAP PO (09:47)
[2018-11-20] MEDS: FAMOTIDINE 20 MG TAB PO ×2 (09:47→20:04)
[2018-11-20] MEDS: AMLODIPINE 5 MG TAB PO (09:47)
[2018-11-20] MEDS: HEPARIN 5,000 UNIT/1 ML VIAL SC ×2 (09:48→20:10)
[2018-11-20] MEDS: RIVAROXABAN 20 MG TABLET PO (17:44)
[2018-11-20] MEDS: MONTELUKAST 10 MG TAB PO (20:04)
[2018-11-20] MEDS: ATORVASTATIN 40 MG TAB PO (20:04)
[2018-11-20] MEDS: TAMSULOSIN (SR) 0.4 MG CAP PO (20:04)
[2018-11-20] MEDS: SENNA TAB PO (20:04)
[2018-11-20] MEDS: QUETIAPINE 25 MG TAB PO ×2 (20:04→22:23)
[2018-11-20] MEDS: ACETAMINOPHEN 325 MG TAB PO (22:23)
[2018-11-20] MEDS: BETAMETHASONE/CLOTRIMAZOLE 15 GM CR TOP (22:25)
[2018-11-21] MEDS: DOCUSATE SODIUM 100 MG CAP PO ×2 (08:53→20:38)
[2018-11-21] MEDS: BETAMETHASONE/CLOTRIMAZOLE 15 GM CR TOP ×2 (08:53→20:39)
[2018-11-21] MEDS: FLUTICASONE/VILANTEROL 100-25 INH (08:53)
[2018-11-21] MEDS: DILTIAZEM (CD) 180 MG CAP PO (08:54)
[2018-11-21] MEDS: ASPIRIN 81 MG TAB PO (08:54)
[2018-11-21] MEDS: AMLODIPINE 5 MG TAB PO (08:54)
[2018-11-21] MEDS: MULTIVITAMINS THERAPEUTIC TAB PO (08:54)
[2018-11-21] MEDS: FAMOTIDINE 20 MG TAB PO ×2 (08:54→20:39)
[2018-11-21] MEDS: FINASTERIDE 5 MG TAB PO (08:54)
[2018-11-21] MEDS: LOSARTAN 50 MG TAB PO ×2 (08:54→20:45)
[2018-11-21] MEDS: THIAMINE 100 MG TAB PO (08:54)
[2018-11-21] MEDS: HEPARIN 5,000 UNIT/1 ML VIAL SC ×2 (08:55→20:44)
[2018-11-21] MEDS: RIVAROXABAN 20 MG TABLET PO (17:54)
[2018-11-21] MEDS: ATORVASTATIN 40 MG TAB PO (20:38)
[2018-11-21] MEDS: SENNA TAB PO (20:38)
[2018-11-21] MEDS: MONTELUKAST 10 MG TAB PO (20:39)
[2018-11-21] MEDS: TAMSULOSIN (SR) 0.4 MG CAP PO (20:39)
[2018-11-21] MEDS: QUETIAPINE 25 MG TAB PO (20:39)
[2018-11-22] MEDS: DILTIAZEM (CD) 180 MG CAP PO (09:00)
[2018-11-22] MEDS: FLUTICASONE/VILANTEROL 100-25 INH (09:41)
[2018-11-22] MEDS: BETAMETHASONE/CLOTRIMAZOLE 15 GM CR TOP ×2 (09:41→21:12)
[2018-11-22] MEDS: ASPIRIN 81 MG TAB PO (09:42)
[2018-11-22] MEDS: AMLODIPINE 5 MG TAB PO (09:43)
[2018-11-22] MEDS: FINASTERIDE 5 MG TAB PO (09:43)
[2018-11-22] MEDS: MULTIVITAMINS THERAPEUTIC TAB PO (09:43)
[2018-11-22] MEDS: FAMOTIDINE 20 MG TAB PO ×2 (09:43→20:59)
[2018-11-22] MEDS: LOSARTAN 50 MG TAB PO ×2 (09:44→20:59)
[2018-11-22] MEDS: THIAMINE 100 MG TAB PO (09:44)
[2018-11-22] MEDS: DOCUSATE SODIUM 100 MG CAP PO ×2 (09:44→20:58)
[2018-11-22] MEDS: HEPARIN 5,000 UNIT/1 ML VIAL SC ×2 (09:49→20:57)
[2018-11-22 12:13] LABS: ADD UMIC YES; UR ASCORBIC ACID 20 mg/dL (NEGATIVE); UR BACTERIA FEW /HPF (NONE SEEN); UR BILIRUBIN (Dip) NEGATIVE (NEGATIVE); UR BLOOD (Dip) 3+ mg/dL (NEGATIVE); UR CLARITY CLOUDY (CLEAR); UR COLOR RED (YELLOW); UR GLUCOSE (Dip) NEGATIVE (NEGATIVE); UR KETONES (Dip) NEGATIVE (NEGATIVE); UR LEUKOCYTE ESTERASE (Dip) NEGATIVE Leu/ul (NEGATIVE); UR NITRITE (Dip) NEGATIVE (NEGATIVE); UR RBC > 182 /HPF (0-5); UR SPECIFIC GRAVITY (Dip) 1.021 (1.003-1.030); UR TOTAL PROTEIN (Dip) 2+ mg/dl (NEGATIVE); UR UROBILINOGEN (Dip) NEGATIVE (NEGATIVE); UR WBC > 182 /HPF (0-5)
[2018-11-22] MEDS: LEVOFLOXACIN 750MG/D5W (PMX) 150 ML IVPB (14:30)
[2018-11-22] MEDS: FOSFOMYCIN 3 GM PACKET PO (15:25)
[2018-11-22] MEDS: CYANOCOBALAMIN 1000 MCG INJ SC (15:26)
[2018-11-22] MEDS: RIVAROXABAN 20 MG TABLET PO (17:51)
[2018-11-22] MEDS: ACETAMINOPHEN 325 MG TAB PO (20:56)
[2018-11-22] MEDS: QUETIAPINE 25 MG TAB PO (20:56)
[2018-11-22] MEDS: MONTELUKAST 10 MG TAB PO (20:56)
[2018-11-22] MEDS: TAMSULOSIN (SR) 0.4 MG CAP PO (20:58)
[2018-11-22] MEDS: ATORVASTATIN 40 MG TAB PO (20:58)
[2018-11-22] MEDS: SENNA TAB PO (20:59)
[2018-11-22] MEDS: LEVOFLOXACIN 750 MG TABLET PO (21:14)
[2018-11-23] MEDS: THIAMINE 100 MG TAB PO ×2 (09:00→21:00)
[2018-11-23] MEDS: AMLODIPINE 5 MG TAB PO ×2 (09:00→16:00)
[2018-11-23] MEDS: LOSARTAN 50 MG TAB PO ×2 (09:00→20:27)
[2018-11-23] MEDS: BETAMETHASONE/CLOTRIMAZOLE 15 GM CR TOP ×2 (09:00→20:28)
[2018-11-23] MEDS: DILTIAZEM (CD) 180 MG CAP PO (09:00)
[2018-11-23] MEDS: HEPARIN 5,000 UNIT/1 ML VIAL SC ×2 (09:00→20:40)
[2018-11-23] MEDS: FAMOTIDINE 20 MG TAB PO ×2 (09:00→20:27)
[2018-11-23] MEDS: FLUTICASONE/VILANTEROL 100-25 INH (09:12)
[2018-11-23] MEDS: FINASTERIDE 5 MG TAB PO (09:12)
[2018-11-23] MEDS: DOCUSATE SODIUM 100 MG CAP PO ×2 (09:13→20:25)
[2018-11-23] MEDS: ASPIRIN 81 MG TAB PO (09:13)
[2018-11-23] MEDS: MULTIVITAMINS THERAPEUTIC TAB PO (09:13)
[2018-11-23] MEDS: LEVOFLOXACIN 500 MG TAB PO (15:59)
[2018-11-23] MEDS: DILTIAZEM 60 MG TAB PO (16:00)
[2018-11-23] MEDS: RIVAROXABAN 20 MG TABLET PO (17:55)
[2018-11-23 19:43] LABS: ADD UMIC YES; UR ASCORBIC ACID NEGATIVE (NEGATIVE); UR BILIRUBIN (Dip) NEGATIVE (NEGATIVE); UR BLOOD (Dip) 3+ mg/dL (NEGATIVE); UR CLARITY CLEAR (CLEAR); UR COLOR YELLOW (YELLOW); UR GLUCOSE (Dip) NEGATIVE (NEGATIVE); UR KETONES (Dip) NEGATIVE (NEGATIVE); UR LEUKOCYTE ESTERASE (Dip) NEGATIVE Leu/ul (NEGATIVE); UR NITRITE (Dip) NEGATIVE (NEGATIVE); UR RBC > 182 /HPF (0-5); UR SPECIFIC GRAVITY (Dip) 1.011 (1.003-1.030); UR TOTAL PROTEIN (Dip) NEGATIVE (NEGATIVE); UR UROBILINOGEN (Dip) 1+ mg/dL (NEGATIVE); UR WBC 0 /HPF (0-5)
[2018-11-23] MEDS: TAMSULOSIN (SR) 0.4 MG CAP PO (20:24)
[2018-11-23] MEDS: MONTELUKAST 10 MG TAB PO (20:25)
[2018-11-23] MEDS: QUETIAPINE 25 MG TAB PO (20:25)
[2018-11-23] MEDS: SENNA TAB PO (20:25)
[2018-11-23] MEDS: ATORVASTATIN 40 MG TAB PO (20:27)
[2018-11-23 21:06] LABS: TROPONIN-I < 0.012 ng/ml (0.000-0.120)
[2018-11-23] MEDS: RANITIDINE 150 MG TAB PO (22:18)
[2018-11-24] MEDS: LEVOFLOXACIN 500 MG TAB PO (06:32)
[2018-11-24] MEDS: THIAMINE 100 MG TAB PO (09:00)
[2018-11-24] MEDS: FLUTICASONE/VILANTEROL 100-25 INH (09:10)
[2018-11-24] MEDS: ASPIRIN 81 MG TAB PO (09:10)
[2018-11-24] MEDS: DILTIAZEM (CD) 180 MG CAP PO (09:12)
[2018-11-24] MEDS: DOCUSATE SODIUM 100 MG CAP PO ×2 (09:13→19:54)
[2018-11-24] MEDS: AMLODIPINE 5 MG TAB PO (09:14)
[2018-11-24] MEDS: FINASTERIDE 5 MG TAB PO (09:14)
[2018-11-24] MEDS: MULTIVITAMINS THERAPEUTIC TAB PO (09:15)
[2018-11-24] MEDS: LOSARTAN 50 MG TAB PO ×2 (09:15→19:41)
[2018-11-24] MEDS: RANITIDINE 150 MG TAB PO ×2 (09:16→19:40)
[2018-11-24] MEDS: HEPARIN 5,000 UNIT/1 ML VIAL SC ×2 (09:20→19:43)
[2018-11-24] MEDS: BETAMETHASONE/CLOTRIMAZOLE 15 GM CR TOP ×2 (09:21→19:40)
[2018-11-24] MEDS: RIVAROXABAN 20 MG TABLET PO (17:59)
[2018-11-24] MEDS: QUETIAPINE 25 MG TAB PO (19:40)
[2018-11-24] MEDS: SENNA TAB PO (19:40)
[2018-11-24] MEDS: ATORVASTATIN 40 MG TAB PO (19:40)
[2018-11-24] MEDS: MONTELUKAST 10 MG TAB PO (19:40)
[2018-11-24] MEDS: TAMSULOSIN (SR) 0.4 MG CAP PO (19:41)
[2018-11-24] MEDS: ACETAMINOPHEN 325 MG TAB PO (19:42)
[2018-11-25] MEDS: LEVOFLOXACIN 500 MG TAB PO (06:10)
[2018-11-25] MEDS: DOCUSATE SODIUM 100 MG CAP PO (09:00)
[2018-11-25] MEDS: ASPIRIN 81 MG TAB PO (09:35)
[2018-11-25] MEDS: FLUTICASONE/VILANTEROL 100-25 INH (09:35)
[2018-11-25] MEDS: DILTIAZEM (CD) 180 MG CAP PO (09:40)
[2018-11-25] MEDS: LOSARTAN 50 MG TAB PO ×2 (09:41→20:23)
[2018-11-25] MEDS: AMLODIPINE 5 MG TAB PO (09:41)
[2018-11-25] MEDS: RANITIDINE 150 MG TAB PO ×2 (09:42→20:22)
[2018-11-25] MEDS: THIAMINE 100 MG TAB PO (09:42)
[2018-11-25] MEDS: FINASTERIDE 5 MG TAB PO (09:42)
[2018-11-25] MEDS: MULTIVITAMINS THERAPEUTIC TAB PO (09:42)
[2018-11-25] MEDS: BETAMETHASONE/CLOTRIMAZOLE 15 GM CR TOP ×2 (09:44→20:24)
[2018-11-25] MEDS: HEPARIN 5,000 UNIT/1 ML VIAL SC (09:53)
[2018-11-25] MEDS: RIVAROXABAN 20 MG TABLET PO (17:05)
[2018-11-25] MEDS: ACETAMINOPHEN 325 MG TAB PO (20:22)
[2018-11-25] MEDS: ATORVASTATIN 40 MG TAB PO (20:22)
[2018-11-25] MEDS: QUETIAPINE 25 MG TAB PO ×2 (20:22→22:58)
[2018-11-25] MEDS: MONTELUKAST 10 MG TAB PO (20:22)
[2018-11-25] MEDS: TAMSULOSIN (SR) 0.4 MG CAP PO (20:23)
[2018-11-25] MEDS: SENNA TAB PO (20:33)
[2018-11-25] MEDS: CEFAZOLIN 1 GM/50 ML (PMX) 50 ML IVPB (23:02)
[2018-11-26] MEDS: CEFAZOLIN 1 GM/50 ML (PMX) 50 ML IVPB ×3 (08:19→21:44)
[2018-11-26] MEDS: BETAMETHASONE/CLOTRIMAZOLE 15 GM CR TOP ×2 (09:00→20:24)
[2018-11-26] MEDS: FLUTICASONE/VILANTEROL 100-25 INH (09:31)
[2018-11-26] MEDS: THIAMINE 100 MG TAB PO (09:31)
[2018-11-26] MEDS: RANITIDINE 150 MG TAB PO ×2 (09:31→20:23)
[2018-11-26] MEDS: FINASTERIDE 5 MG TAB PO (09:32)
[2018-11-26] MEDS: LOSARTAN 50 MG TAB PO ×2 (09:32→20:24)
[2018-11-26] MEDS: DILTIAZEM (CD) 180 MG CAP PO (09:32)
[2018-11-26] MEDS: MULTIVITAMINS THERAPEUTIC TAB PO (09:33)
[2018-11-26] MEDS: AMLODIPINE 5 MG TAB PO (09:33)
[2018-11-26 16:34] LABS: ADD UMIC YES; UR ASCORBIC ACID 40 mg/dL (NEGATIVE); UR BACTERIA FEW /HPF (NONE SEEN); UR BILIRUBIN (Dip) NEGATIVE (NEGATIVE); UR BLOOD (Dip) 2+ mg/dL (NEGATIVE); UR CLARITY CLOUDY (CLEAR); UR COLOR AMBER (YELLOW); UR GLUCOSE (Dip) NEGATIVE (NEGATIVE); UR KETONES (Dip) TRACE mg/dL (NEGATIVE); UR LEUKOCYTE ESTERASE (Dip) NEGATIVE Leu/ul (NEGATIVE); UR MUCUS MODERATE /HPF (NONE SEEN); UR NITRITE (Dip) NEGATIVE (NEGATIVE); UR RBC 49 /HPF (0-5); UR SPECIFIC GRAVITY (Dip) 1.024 (1.003-1.030); UR TOTAL PROTEIN (Dip) NEGATIVE (NEGATIVE); UR UROBILINOGEN (Dip) 1+ mg/dL (NEGATIVE); UR WBC 4 /HPF (0-5)
[2018-11-26] MEDS: RIVAROXABAN 20 MG TABLET PO (17:18)
[2018-11-26] MEDS: ATORVASTATIN 40 MG TAB PO (20:22)
[2018-11-26] MEDS: SENNA TAB PO (20:23)
[2018-11-26] MEDS: QUETIAPINE 25 MG TAB PO (20:23)
[2018-11-26] MEDS: MONTELUKAST 10 MG TAB PO (20:23)
[2018-11-26] MEDS: TAMSULOSIN (SR) 0.4 MG CAP PO (20:23)
[2018-11-27] MEDS: CEFAZOLIN 1 GM/50 ML (PMX) 50 ML IVPB ×3 (06:06→21:39)
[2018-11-27] MEDS: RANITIDINE 150 MG TAB PO ×2 (08:26→20:34)
[2018-11-27] MEDS: LOSARTAN 50 MG TAB PO ×2 (08:26→20:35)
[2018-11-27] MEDS: FINASTERIDE 5 MG TAB PO (08:27)
[2018-11-27] MEDS: DILTIAZEM (CD) 180 MG CAP PO (08:27)
[2018-11-27] MEDS: MULTIVITAMINS THERAPEUTIC TAB PO (08:27)
[2018-11-27] MEDS: THIAMINE 100 MG TAB PO (08:27)
[2018-11-27] MEDS: AMLODIPINE 5 MG TAB PO (08:27)
[2018-11-27] MEDS: FLUTICASONE/VILANTEROL 100-25 INH (08:27)
[2018-11-27] MEDS: BETAMETHASONE/CLOTRIMAZOLE 15 GM CR TOP ×2 (08:28→20:35)
[2018-11-27] MEDS: RIVAROXABAN 20 MG TABLET PO (17:50)
[2018-11-27] MEDS: ONDANSETRON 4 MG TAB PO (17:54)
[2018-11-27] MEDS: TAMSULOSIN (SR) 0.4 MG CAP PO (20:34)
[2018-11-27] MEDS: ATORVASTATIN 40 MG TAB PO (20:34)
[2018-11-27] MEDS: MONTELUKAST 10 MG TAB PO (20:34)
[2018-11-27] MEDS: SENNA TAB PO (20:34)
[2018-11-27] MEDS: QUETIAPINE 25 MG TAB PO (20:35)
[2018-11-28] MEDS: CEFAZOLIN 1 GM/50 ML (PMX) 50 ML IVPB ×3 (06:10→21:38)
[2018-11-28] MEDS: LOSARTAN 50 MG TAB PO ×2 (09:00→21:01)
[2018-11-28] MEDS: MULTIVITAMINS THERAPEUTIC TAB PO (09:00)
[2018-11-28] MEDS: AMLODIPINE 5 MG TAB PO (09:00)
[2018-11-28] MEDS: DILTIAZEM (CD) 180 MG CAP PO (09:00)
[2018-11-28] MEDS: RANITIDINE 150 MG TAB PO ×2 (09:04→21:01)
[2018-11-28] MEDS: THIAMINE 100 MG TAB PO (09:04)
[2018-11-28] MEDS: BETAMETHASONE/CLOTRIMAZOLE 15 GM CR TOP ×2 (09:04→21:39)
[2018-11-28] MEDS: FINASTERIDE 5 MG TAB PO (09:04)
[2018-11-28] MEDS: FLUTICASONE/VILANTEROL 100-25 INH (09:05)
[2018-11-28] MEDS: RIVAROXABAN 20 MG TABLET PO (17:36)
[2018-11-28] MEDS: TAMSULOSIN (SR) 0.4 MG CAP PO (21:01)
[2018-11-28] MEDS: QUETIAPINE 25 MG TAB PO (21:01)
[2018-11-28] MEDS: MONTELUKAST 10 MG TAB PO (21:01)
[2018-11-28] MEDS: ATORVASTATIN 40 MG TAB PO (21:01)
[2018-11-28] MEDS: SENNA TAB PO (21:02)
[2018-11-29] MEDS: ACETAMINOPHEN 325 MG TAB PO ×2 (00:53→20:39)
[2018-11-29] MEDS: QUETIAPINE 25 MG TAB PO ×3 (01:09→20:34)
[2018-11-29] MEDS: LORAZEPAM 2 MG INJ IV (02:07)
[2018-11-29] MEDS: CEFAZOLIN 1 GM/50 ML (PMX) 50 ML IVPB ×3 (06:15→22:54)
[2018-11-29] MEDS: LOSARTAN 50 MG TAB PO (09:00)
[2018-11-29] MEDS: DILTIAZEM (CD) 180 MG CAP PO (09:00)
[2018-11-29] MEDS: AMLODIPINE 5 MG TAB PO (09:00)
[2018-11-29] MEDS: MULTIVITAMINS THERAPEUTIC TAB PO (09:21)
[2018-11-29] MEDS: FINASTERIDE 5 MG TAB PO (09:21)
[2018-11-29] MEDS: BETAMETHASONE/CLOTRIMAZOLE 15 GM CR TOP ×2 (09:26→20:35)
[2018-11-29] MEDS: THIAMINE 100 MG TAB PO (09:26)
[2018-11-29] MEDS: RANITIDINE 150 MG TAB PO ×2 (09:26→20:33)
[2018-11-29] MEDS: FLUTICASONE/VILANTEROL 100-25 INH (09:27)
[2018-11-29] MEDS: RIVAROXABAN 20 MG TABLET PO (17:51)
[2018-11-29] MEDS: TAMSULOSIN (SR) 0.4 MG CAP PO (20:34)
[2018-11-29] MEDS: SENNA TAB PO (20:35)
[2018-11-29] MEDS: MONTELUKAST 10 MG TAB PO (20:35)
[2018-11-29] MEDS: ATORVASTATIN 40 MG TAB PO (20:35)
[2018-11-30] MEDS: CEFAZOLIN 1 GM/50 ML (PMX) 50 ML IVPB ×2 (06:10→12:24)
[2018-11-30] MEDS: DOCUSATE SODIUM 100 MG CAP PO (08:56)
[2018-11-30] MEDS: FINASTERIDE 5 MG TAB PO (08:56)
[2018-11-30] MEDS: RANITIDINE 150 MG TAB PO (08:56)
[2018-11-30] MEDS: AMLODIPINE 5 MG TAB PO (08:57)
[2018-11-30] MEDS: MULTIVITAMINS THERAPEUTIC TAB PO (08:57)
[2018-11-30] MEDS: THIAMINE 100 MG TAB PO (08:57)
[2018-11-30] MEDS: DILTIAZEM (CD) 180 MG CAP PO (08:57)
[2018-11-30] MEDS: LOSARTAN 50 MG TAB PO (08:57)
[2018-11-30] MEDS: FLUTICASONE/VILANTEROL 100-25 INH (08:57)
[2018-11-30] MEDS: BETAMETHASONE/CLOTRIMAZOLE 15 GM CR TOP (08:59)
== END 2018-11-30 14:30 | disposition home or self-care (01) | DRG 91 ==
LOC: VRC 11-22 12:42
DX: G92 Toxic encephalopathy (principal); J18.9 Pneumonia, unspecified organism; N17.9 Acute kidney failure, unspecified; I25.10 Atherosclerotic heart disease of native coronary artery without angina pectoris; Z95.5 Presence of coronary angioplasty implant and graft; N40.0 Benign prostatic hyperplasia without lower urinary tract symptoms; J45.909 Unspecified asthma, uncomplicated; I10 Essential (primary) hypertension; E78.5 Hyperlipidemia, unspecified; I48.91 Unspecified atrial fibrillation; L40.9 Psoriasis, unspecified; E53.8 Deficiency of other specified B group vitamins; F06.31 Mood disorder due to known physiological condition with depressive features; F06.8 Other specified mental disorders due to known physiological condition
CPT/HCPCS: 71045; 80053; 81001; 84484; 85025; 87045; 87081; 87086; 92507; 92523; 93005; 97110; 97112; 97116; 97163; 97530; 97535; 97542